=== PATIENT | female | born 1975 | race Caucasian/White ===

== ENCOUNTER 2022-05-19 12:04 | Emergency (ER) | payer OTHER ==
[2022-05-19 12:14] VITALS: BP 146/77
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
[2022-05-19] MEDS ORDERED: IBUPROFEN 600 MG TABLET PO STA (12:53)
[2022-05-19] MEDS ORDERED: ACETAMINOPHEN 325 MG TABLET PO STA (12:53)
[2022-05-19] MEDS ORDERED: TETANUS/DIPHTHERIA/PERTUSSIS 0.5 ML SYRINGE IM ONE (12:53)
== END 2022-05-19 13:39 | disposition home or self-care (01) ==
LOC: ED 12:04
DX: S91.311A Laceration without foreign body, right foot, initial encounter (principal); S91.312A Laceration without foreign body, left foot, initial encounter; W45.0XXA Nail entering through skin, initial encounter; Y93.02 Activity, running; Y92.008 Other place in unspecified non-institutional (private) residence as the place of occurrence of the external cause
CPT/HCPCS: 12001; 90471; 90715; 99283; A9270